=== PATIENT | female | born 1945 | race Caucasian/White ===

== ENCOUNTER 2025-04-07 11:09 | Outpatient (CLI) | payer MEDICARE, SELFPAY ==
--- NOTE | ~2025-04-07 | CT_ITS ---
EXAMINATION: CT diagnostic chest wo con DATE: 04/07/2025 11:30 INDICATION: J42 - Unspecified chronic bronchitis TECHNIQUE: Computed tomography (CT) of the chest was performed without intravenous contrast. Addition al 3D reconstructions utilizing coronal maximum intensity projection (MIP) were performed. Automated exposure control and iterative reconstruction technique were employed. The dose-length product was 25 8.34 mGy-cm. COMPARISON: None FINDINGS: Minimal posterior biapical pleural-parenchymal scarring. Small calcified right upper lobe nodule laureen g with calcified mediastinal lymph nodes and several scattered splenic calcific lesions, all consiste nt with old granulomatous disease. 5 mm noncalcified nodules in the left lower lobe. No other suspici ous pulmonary nodules, pulmonary edema, pleural effusion or pneumothorax. Minimal diffuse bronchial w all thickening consistent with provided history of bronchitis. Heart size is normal. Small amount of atherosclerotic coronary artery calcifications. No pericardial effusion. Thoracic aorta is normal in caliber. No pathologically enlarged thoracic lymphadenopathy. Mild diffuse hepatic steatosis. Partial ly visualized at least 1.8 cm right renal cyst. Severe spondylosis at the thoracolumbar junction with and mild to moderate spondylosis and more cephalad thoracic spine. C4-C7 anterior spinal fusion with anterior plate and screw fixation more completely visualized on the guide foreign tour topogram. IMPRESSION: 1. Minimal diffuse bronchial wall thickening consistent with provided history of bronchitis. No pneum onia or other acute cardiopulmonary disease. 2. 5 mm indeterminate left lower lobe pulmonary nodule. If the patient is low risk for lung cancer, n o follow-up is needed. If the patient is high risk (i.e., history of smoking or asbestos or significa nt radiation exposure), optional follow-up chest CT could be considered at 12 months. Reviewed, dictated and finalized at location A. IMPRESSION: 1. Minimal diffuse bronchial wall thickening consistent with provided history o f bronchitis. No pneumonia or other acute cardiopulmonary disease. 2. 5 mm indeterminate left lower lobe pulmonary nodule. If the patient is low r isk for lung cancer, no follow-up is needed. If the patient is high risk (i.e., history of smoking or asbestos or significant radiation exposure), optional fo llow-up chest CT could be considered at 12 months.
--- OUTSIDE RECORDS SUMMARY | 2025-04-07 11:13 | XMS_ITS | Patient Health Record ---
Author Organization [facility] Address [address] [place] [address] Care Team Providers Care Sheriff Sergeant Name Role Phone Dr. Kun Turner Primary Care Provider [phone] Dr. Tatianna Olivo Unavailable [phone] Sheree Matias Unavailable [phone] Migration, Provider Unavailable Unavailable Allergies Allergen (clinical drug ingredient) Drug/Non Drug Allergy documented on EMR Reaction Allergy Type Onset Date Status doxycycline Doxycycline insomnia Drug Allergy Act lucila Results Component Value Reference Range Flag Notes MAMMOGRAM, SCREENING Reviewed date:02/21/2025 02:25:37 PM Interpretation: Performing Lab: Notes/Report: CT Bone Density Axial 89503 Reviewed date:02/21/2025 02:25:31 PM Interpretation: Performing Lab: Notes/Report: Pulmonary Function Test Reviewed date:12/26/2024 09:51:57 AM Interpretation: Performing Lab: Notes/Report: Vitamin B12 Reviewed date:01/16/2025 02:35:37 PM Interpretation: Performing Lab: Notes/Report: Test Performed by: [address] [address] Packing Line Worker: Rafael Ford DO Vitamin B12 Lvl 257 180-914 pg/mL Vitamin B12 Interpretation: Normal Range: 180-914 pg/mL Indeterminate: 140-180 pg/mL Deficient: <140 pg/mL Uric Acid Reviewed date:01/16/2025 02:35:37 PM Interpretation: Performing Lab: Notes/Report: Test Performed by: [address] [address] Packing Line Worker: Rafael Ford DO Uric Acid 6.1 2.3-6.6 mg/dL Thyroid Stimulating Hormone Reviewed date:01/16/2025 02:35:37 PM Interpretation: Performing Lab: Notes/Report: Test Performed by: [place] [address] Packing Line Worker: Rafael Ford DO TSH 2.36 0.45-5.33 mcIU/mL Lipid Panel {Chol, Trig, HDL , LDL} Reviewed date:01/16/2025 02:35:37 PM Interpretation: Performing Lab: Notes/Report: Test Performed by: [place] [id number] Packing Line Worker: Rafael Ford DO Cholesterol Total 186 <=199 mg/dL Triglycerides 107 0-149 mg/dL Triglyceride Reference Ranges: <150 mg/dL Normal 150 - 199 mg/dL Borderline High 200 - 499 mg/dL High >=500 mg/dL Very High LDL 89 <=100 mg/dL LDL Optimal: <100 Near or above optimal: 100-129 Borderline high: 130-159 High: 160-189 Very high: >=190 Coronary heart disease risk factors should be considered when determining LDL goals. Please refer to ATPIII guidelines for further information. If LDL is not calculated, please call the lab to add on the direct LDL methodology, if desired. HDL 75 23-92 mg/dL Non HDL Cholesterol 111 <=130 mg/dL Chol/HDL 2 0-5 Coronary Risk 40 Coronary Risk Factor - Male Dangerous Risk: <7 % High Risk: 7-15 % Average Risk: 15-25 % Below Average Risk: 25-37 % Coronary Risk Factor - Female Dangerous Risk: <12 % High Risk: 12-18 % Average Risk: 18-27 % Below Average Risk: 27-40 % Comprehensive Metabolic Pane l Reviewed date:01/16/2025 02:35:37 PM Interpretation: Performing Lab: Notes/Report: Test Performed by: [place] [id number] Packing Line Worker: Rafael Ford DO Glucose Lvl 96 74-109 mg/dL ADA risk stratification for diabetes <100 mg/dL = Normal 100-125 mg/dL = Increased risk for future diabetes >=126 mg/dL = Diabetes, if on more than one testing occasion BUN 14 7-25 mg/dL Creatinine Lvl 0.87 0.60-1.20 mg/dL eGFR CKD-EPI 69 >=90 mL/min/1.73 m2 L The CKD-EPI equation is validated in individuals 18 years of age and older. It is less accurate in patients with extremes of muscle mass, restriction of dietary protein, ingestion of creatine, extra-renal metabolism of creatinine, or treatment with medications that affect renal tubular creatinine secretion. GFR Categories in Chronic Kidney Disease (CKD) GFR GFR (mL/min/1.73 Category: square meters): Interpretation: G1 90 or greater Normal or high* G2 60-89 Mild decrease* G3a 45-59 Mild to moderate decrease G3b 30-44 Moderate to severe decrease G4 15-29 Severe decrease G5 14 or less Kidney failure *In the absence of evidence of kidney damage, neither GFR category G1 nor G2 fulfill the criteria for CKD (Kidney Int Suppl 2013;3:1-150) Calcium Lvl 9.0 8.6-10.3 mg/dL Sodium Lvl 141 136-145 mmol/L Potassium Lvl 4.4 3.5-5.1 mmol/L Chloride Lvl 106 98-107 mmol/L CO2 28 21-31 mmol/L Anion Gap 6.6 <=16.0 mmol/L Alk Phos 63 34-104 unit/L Bilirubin Total 0.7 0.3-1.0 mg/dL Albumin Lvl 4.1 3.5-5.2 g/dL Protein Total 6.3 6.4-8.9 g/dL L Albumin/Globulin Ratio 1.8 1.1-2.5 ALT 19 7-52 unit/L AST 20 13-39 unit/L CBC w Auto Diff Reviewed date:01/16/2025 02:35:37 PM Interpretation: Performing Lab: Notes/Report: Test Performed by: [place] [address] Packing Line Worker: Rafael Ford, WBC 5.0 4.0-11.7 K/mcL RBC 4.35 3.80-5.41 x10*6/mcL Hgb 13.2 11.3-15.2 g/dL Hct 40.1 33.2-45.3 % MCV 92.2 79.5-98.1 fL MCH 30.3 27.0-34.2 pg MCHC 32.8 31.8-35.3 g/dL RDW 14.5 12.0-16.4 % Platelets 240 149-393 K/mcL MPV 9.3 7.0-11.0 fL Neutro Auto 59.2 45.3-79.0 % Lymph Auto 29.4 11.8-45.9 % [place] Auto 8.8 4.4-12.0 % Eosinophil Auto 1.7 0.0-6.3 % Basophil Auto 0.9 0.2-1.6 % Neutro Absolute 3.0 2.4-8.4 x10*3/mcL Lymph Absolute 1.5 0.8-3.7 x10*3/mcL [place] Absolute 0.4 0.3-1.1 x10*3/mcL Eos Absolute 0.1 0.0-0.5 x10*3/mcL PFT with DLCO Reviewed date:12/19/2024 02:01:18 PM Interpretation:air trapping Performing Lab: Notes/Report: air trapping Reason For Referral Reason abnormal PFT Diagnosis 1 Reactive airway dise ase without asthma (J98.9) Diagnosis 2 Abnormal pulmonary f unction (R94.2) Referral Organization [facility] Referring Provider First Name Sheree Referring Provider Last Name Lebronkandis Referring Provider Speciality Nurse Prac titioner Referred Provider Specialty Pulmonology General Notes Faye Quiñones 12/19 02:38:30 PM CDT >[facility] 12/19/2024 04:05:01 PM CDT >Referral faxed to [facility] [phone], Faye Quiñones 01/15/2025 08:59:31 AM CDT >please check on status of referral, Earnestine Desir 02/26/2025 10:59:58 AM CDT >Received consult note. Updated BLADIMIR. Referral Priority Routine Medications Medication SIG (Take, Route, Frequency, Duration) Notes Start Date End Date Status Rosuvastatin Calcium 5 MG Tablet 1 Oral every night at bedtime; Duration: 90 Active rOPINIRole HCl 0.5 MG Tablet 1 Oral every night at bedtime; Duration: 30 Active Immunizations Vaccine Route Administration Date Status Comme nts Influenza, high dose seasonal IM Intramuscular 07/04/2024 Administered ,sourcename : N ew immunization record ,immstatus : Complete Influenza, high-dose seasonal, quadrivalent, preservative free >65 yrs IM Intramuscular 07/06/2023 Administered ,sourcename : N ew immunization record ,immstatus : Complete Influenza, quadrivalent (IIV4), split virus, 6-35 months dosage IM Intramuscular 07/12/2022 Administered ,sourcename : Historical information -source unspecified ,immstatus : Complete Source VFC Code: : Influenza, seasonal, injectable, preservative free, 3 yrs and above Unknown 08/02/2021 Administered [facility] ,sourcename : Historical information -source unspecified Source VFC Code: : Moderna Covid-19 Vaccine 1st dose Unknown 10/21/2020 Administered ,sourcename : Historical information -from public agency Source VFC Code: : Moderna Covid-19 Vaccine 1st dose Unknown 11/18/2020 Administered ,sourcename : Historical information -from public agency Source VFC Code: : Moderna Covid-19 Vaccine 1st dose Unknown 08/02/2021 Administered ,sourcename : Historical information -from public agency Source VFC Code: : Pneumococcal conjugate PCV 13 Unknown 01/12/2018 Administered ,sourcename : Historical information -from public agency Source VFC Code: : Pneumococcal polysaccharide PPV23 Unknown 01/28/2019 Administered ,sourcename : Historical information -from public agency Source VFC Code: : RSV-MAb (Respiratory syncytial virus immune globulin) IM Intramuscular 09/25/2023 Administered ,sourcename : New immunization record ,immstatus : Complete Tdap Unknown 08/18/2012 Administered ,sourcename : Historical information -from public agency Source VFC Code: : Zoster IM Intramuscular 01/10/2023 Administered ,sourcename : New immunization record ,immstatus : Complete Source VFC Code: : Zoster IM Intramuscular 07/19/2023 Administered ,sourc ename : New immunization record ,immstatus : Complete Social History Social History Drug/Alcohol: Social Info Question Answer Notes AUDIT-C (Standard) Did you have a drink containing alcohol in the past year? Yes How often did you have a drink containing alcohol in the past year? Daily or almost daily (4 points) How many drinks did you have on a typical day when you were drinking in the past year? 3 or 4 drinks (1 point) How often did you have six or more drinks on one occasion in the past year? 2 to 4 times a month (2 points) Points 7 Interpretation Positive OPIOID Risk Tool (2018 Edition) Family Hx Alcohol? No Family Hx Illegal Drugs? No Family Hx Rx Drugs? No Personal Hx Alcohol? No Personal Hx Illegal Drugs? No Personal Hx Rx Drugs? No Age between 16-45 years? No ADD, OCD, Bipolar, Schizophrenia? No Depression? No TOTAL SCORE 0 Risk Level for Opioid Use low Additional Details Category Social Info Options Details Migrated Social History Migrated Social History Frequency of drinks:1-4 drinks per week ,notes : 2-4 beers per day/times per week , Living arrangements:House , Alcohol history:Currently drinks alcohol , Marital status: Problems Problem Type SNOMED Code ICD Code Onset Dates Problem Status W/U Status Risk Notes Problem Persistent cough (267792921) Persistent cough (R05.3) Active confirmed Problem Restless legs syndrome (57380085) Restless legs syndrome (G25.81) 07/31/20 24 Active confirmed Problem Essential hypertension (53251808) Essential (primary) hypertension (I10) 07/27/20 21 Active confirmed Problem Mononeuropathy of lower limb (530050673) 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) 01/06/20 23 Active confirmed Problem Recurrent falls (121780467) Repeated falls (R29.6) 01/06/20 23 Active confirmed Problem Photokeratitis (6716967) Photokeratitis, unspecified eye (H16.139) 01/01/20 24 Active confirmed Problem Hyperuricemia without signs of inflammatory arthritis and tophaceous disease (292301173) Hyperuricemia without signs of inflammatory arthritis and tophaceous disease (E79.0) 01/10/20 24 Active confirmed Problem Mixed hyperlipidemia (228104507) Mixed hyperlipidemia (E78.2) 07/27/20 21 Active confirmed Vital Signs Heart Rate 78 /min 01/21/2025 Temperature 98.8 degrees Fahrenheit 01/21/2025 Respiratory Rate 18 /min 01/21/2025 Height-cm 152.4 cm 01/21/2025 Oximetry 95 % 01/21/2025 Blood pressure diastolic 72 mm Hg 01/21/2025 Weight-kg 83.28 kg 01/21/2025 Height 60.00 in 01/21/2025 Blood pressure systolic 126 mm Hg 01/21/2025 Weight 183.6 lbs 01/21/2025 BMI 35.85 kg/m2 01/21/2025 Encounters Encounter Location Date Provider Diagnosis [address] [address] 07/04/2024 Dr. Tatianna Olivo Encounter for immunization Z23 [address] [address] 07/31/2024 Dr. 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 Kun Turner Encounter for subsequent annual wellness visit (AWV) in Medicare patient Z00.00 ; Essential (primary) hypertension I10 ; Mixed hyperlipidemia E78.2 ; Screening mammogram for breast cancer Z12.31 ; Hyperuricemia without signs of inflammatory arthritis and tophaceous disease E79.0 ; Screening for depression Z13.31 and Asymptomatic menopause Z78.[address] [address] 08/17/2024 Provider Migration [address] [address] 08/18/2024 Provider Migration [address] [address] 10/14/2024 Sheree Beckert Bronchitis J40 [address] [address] 10/30/2024 Dr. Kun Turner Cough R05 [address] [address] 12/06/2024 Shereeher Matias Persistent cough R05 .3 and Reactive airway disease without asthma J98.[address] [address] 01/13/2025 Dr. Kun Turner Mixed hyperlipidemia E78.2 ; Hyperuricemia without signs of inflammatory arthritis and tophaceous disease E79.0 ; Essential (primary) hypertension I10 ; Vitamin B12 deficiency E53.8 and Other fatigue R53.83 [facility] [address] [place] [address] 01/30/2025 Dr. 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 No wheezing detected during examination, but restricted air movement observed.- Administer steroid shot (dexamethasone) today and prescribe prednisone 20 mg for five days starting tomorrow. Prescribe albuterol inhaler for use as needed for tightness or wheezing. Prescribe doxycycline to be taken twice daily for 10 days. Advise to take doxycycline with food but not with milk, and to hold calcium supplements while on the antibiotic.-She has been prescirbed Breo, but has never started due to cost. Will see if using albuterol PRN will be helpful. 09/30/2024 Bronchitis (ICD-10 - J40) Physical exam is still showing scattered wheezes. Possible concern for intermmitent asthma. I have given her samples of Airspura to get inhaled steroid coverage. Today will give shot of dex, followed by pred taper, and will also cover with doxy. She is to call with an update to see if Airspura is effective. Will most likely not prescribe Airspura, but would prescribe an inhaler like Wixhela, Symbicort, or Advair based on insurance coverag. 10/30/2024 Cough (ICD-10 - R05) 12/06/2024 Persistent cough (ICD-10 - R05.3) 01/13/2025 Mixed hyperlipidemia (ICD-10 - E78.2) 01/13/2025 Hyperuricemia without signs of inflammatory arthritis and tophaceous disease (ICD-10 - E79.0) 01/21/2025 Encounter for subsequent annual wellness visit (AWV) in Medicare patient (ICD-10 - Z00.00) AWV Instructions The patient's health risk assessment was reviewed during this visit. The patient's chart was reviewed and updated See scanned images from paperwork reviewed and completed today The following topics have been addressed/discuss ed at today's visit: All recommended screening services (as applicable) including infectious diseases, osteoporosis, diabetes and/or diabetes complications, glaucoma, cognitive impairment, hearing impairment, alcohol misuse, cancer screening Fall risk assessment Alcohol misuse Counseling (if applicable) Tobacco Cessation Counseling (if applicable) Immunizations Vital Signs End of Life Care Patient was provided with a written copy of the care plan from today's visit to include topics of Fall prevention, Nutrition, Physical activity, Tobacco-use cessation, Social engagement, Weight loss, Cognition. PHQ-9 was administered today. 1 Mins spent discussing with the patient. Audit c was pos and 5 min spent disc EtOH intake 01/13/2025 Essential (primary) hypertension (ICD-10 - I10) 12/06/2024 Reactive airway disease without asthma (ICD-10 - J98.9) 10/14/2024 Bronchitis (ICD-10 - J40) Electronic Prior Authorization was requested for Wixela Inhub 100-50 MCG/ACT Aerosol Powder Breath Activated. Provider can order medication once approval received. 09/30/2024 Acute cough (ICD-10 - R05.1) 01/13/2025 Vitamin B12 deficiency (ICD-10 - E53.8) 01/21/2025 Essential (primary) hypertension (ICD-10 - I10) 01/13/2025 Other fatigue (ICD-10 - R53.83) 01/21/2025 Mixed hyperlipidemia (ICD-10 - E78.2) 01/21/2025 Hyperuricemia without signs of inflammatory arthritis and tophaceous disease (ICD-10 - E79.0) 01/21/2025 Screening mammogram for breast cancer (ICD-10 - Z12.31) 01/21/2025 Screening for depression (ICD-10 - Z13.31) PHQ-9 done today. 01/21/2025 Asymptomatic menopause (ICD-10 - Z78.0) Plan Of Treatment Future Test Test Name Order Date CBC w Auto Diff 06/18/2025 Comprehensive Metabolic Panel 06/18/2025 Lipid Panel {Chol, Trig, HDL, LDL} 06/18 Uric Acid 06/18/2025 Next Appt Details Provider Name:Dr. Kun li, 07/23/2025 11:00:00 AM, [address], [place], [address], [phone] Provider Name:Dr. Kun li, 01/21/2026 10:00:00 AM, [address], [place], [address], [phone] Insurance Providers Payer Name Payer Address Payer Phone Subscriber Number Group Number Insured Name Patient Relationship to Insured Coverage Start Date Coverage End Date NGS Medicare RHC [address] [place] [address] [id number] Marianne Valdez Self - patient is the insured 2 [facility] [address] [address] [place] [address] [id number] Plan G José Miguel Marianne Self - patient is the insured 2 [facility] Medicare B [address] [place] [address] [id number] Marianne Valdez Self - patient is the insured 2 Medications Administered Medication Instructions Date of Administration Dosage Notes dexAMETHasone 09/05/2024 6 mg dexAMETHasone 09/30/2024 6 mg Medical (General) History Medical History History ICD Code Hyperlipidemia, unspecified E78.5 Wheezing R06.2 Body mass index (BMI) 35.0-35.9, adult Z 68.35 Neoplasm of uncertain behavior, 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
== END 2025-04-07 11:10 | disposition home or self-care (01) ==
PROVIDERS: PCP Pediatrics; Visit Provider Physician Assistant
DX: J42 Unspecified chronic bronchitis (principal); R06.2 Wheezing; R91.1 Solitary pulmonary nodule
CPT/HCPCS: 71250